=== PATIENT | male | born 1980 | race Caucasian/White ===

== ENCOUNTER 2021-08-18 20:15 | Emergency (ER) | payer BC ==
[~2021-08-18] VITALS: Ht 172.7 cm; Wt 76.2 kg
[2021-08-18] MEDS ORDERED: SYMBICORT 16010.2 GM IH (20:58)
[2021-08-18] MEDS ORDERED: FLONASE16 GM NS (20:59)
[2021-08-18] MEDS ORDERED: ALBUTEROL0.63 MG/3 (20:59)
[2021-08-18] MEDS ORDERED: CRESTOR40 MG PO (21:00)
[2021-08-18] MEDS ORDERED: ZETIA10 MG (21:00)
[2021-08-18] MEDS ORDERED: RAYOS5 MG (21:00)
[2021-08-18] MEDS ORDERED: PEPCID40 MG PO (21:01)
== END 2021-08-18 23:29 | disposition home or self-care (01) ==
LOC: ER 20:15
DX: J45.901 Unspecified asthma with (acute) exacerbation (principal)